=== PATIENT | male | born 1960 | race Two or more races ===

== ENCOUNTER 2017-06-18 12:58 | Emergency (ER) | payer SELFPAY ==
[2017-06-18 13:31] LABS: ABSOLUTE BASOPHILS # (AUTO) 0.1 10^3/uL (0.0-0.2); ABSOLUTE EOSINOPHILS # (AUTO) 0.1 10^3/uL (0.0-0.6); ABSOLUTE LYMPHOCYTES (AUTO) 2.2 10^3/uL (0.5-4.7); ABSOLUTE MONOCYTES (AUTO) 0.6 10^3/uL (0.1-1.4); ABSOLUTE NEUT (AUTO) 6.2 10^3/uL (1.7-8.2); EOSINOPHILS % (AUTO) 1.6 % (0-6); HEMATOCRIT 40.5 % (37.9-51.0); HEMOGLOBIN 13.3 g/dL (13.5-17.0); LYMPHOCYTES % (AUTO) 23.8 % (13-45); MEAN CORPUSCULAR HEMOGLOBIN 26.2 pg (27.0-33.4); MEAN CORPUSCULAR HGB CONC 32.9 g/dL (32.0-36.0); MEAN CORPUSCULAR VOLUME 80 fl (80-97); MONOCYTES % (AUTO) 6.3 % (3-13); PLATELET COUNT 228 10^3/uL (150-450); RED BLOOD COUNT 5.08 10^6/uL (4.35-5.55); RED CELL DISTRIBUTION WIDTH 14.8 % (11.5-14.0); SEGMENTED NEUTROPHILS % (AUTO) 67.3 % (42-78); TOTAL CELLS COUNTED % (AUTO) 100 %; WHITE BLOOD COUNT 9.2 10^3/uL (4.0-10.5)
--- NOTE | 2017-06-18 13:41 | ER Document Report ---
ED Cardiac - General Chief Complaint: Chest Pain Stated Complaint: CHEST PAIN Time Seen by Provider: 06/18/17 13:41 Notes: This is a 57-year-old male to the emergency department chief complaint of chest pain/arm pain and generally not feeling well. Patient was at work this morning when he just felt this tightness in his chest with some achiness in his left shoulder and left arm. Patient states that he has not felt well over the last couple of days. Went to his regular doctor. Had labs performed. I does not know the results of them. States that he is under a lot of stress at work. When he was at work today having a stressful situation he had pain in his chest and left arm. Ambulance was called. Patient received aspirin in route. Currently denies significant pain just has an achy feeling. Nonreproducible. No nausea. No vomiting. No abdominal pain. TRAVEL OUTSIDE OF THE [place] IN LAST 30 DAYS: No - HPI Patient complains to provider of: Chest pain, Chest tightness Was the onset of pain: Gradual Quality of pain: Intermittent, Mild, Heaviness Chest pain radiation location: Left arm, Left shoulder Severity now: Mild Severity at worst: Moderate Pain level currently: 1 Chest pain precipitating factors: Mental Exertion/Stress Cardiac risk factors: Diabetes, Hypertension, Smoker, Dyslipidemia, Hx MS Associated symptoms: None - Related Data Allergies/Adverse Reactions: phentermine [From Adipex-P] Allergy (Verified 06/18/17 15:43) shellfish derived Allergy (Verified 06/18/17 15:43) Past Medical History - General Information source: Patient - Social History Smoking Status: Current Every Day Smoker Cigarette use (# per day): Yes Frequency of alcohol use: None Drug Abuse: None Lives with: Spouse/Significant other Family History: CAD, DM, Hypertension Patient has suicidal ideation: No Patient has homicidal ideation: No - Past Medical History Cardiac Medical History: Reports: Hx Coronary Artery Disease, Hx Hypercholesterolemia, Hx Hypertension Pulmonary Medical History: Reports: None EENT Medical History: Reports: None Neurological Medical History: Reports: None Endocrine Medical History: Reports: Hx Diabetes Mellitus Type 2 Renal/ Medical History: Denies: Hx Peritoneal Dialysis Malignancy Medical History: Reports None GI Medical History: Reports: None Past Surgical History: Reports: Hx Cardiac Catheterization - with stents, Hx Orthopedic Surgery - R ankle Review of Systems - Review of Systems Constitutional: Malaise. denies: Fever, Weakness EENT: No symptoms reported. denies: Double vision, Difficulty swallowing, Mouth pain Cardiovascular: Chest pain. denies: Palpitations, Heart racing, Orthopnea Respiratory: No symptoms reported. denies: Cough, Hurts to breathe, Hemoptysis , Short of breath Gastrointestinal: denies: Abdominal pain, Diarrhea, Nausea, Vomiting Genitourinary: No symptoms reported Male Genitourinary: No symptoms reported Musculoskeletal: No symptoms reported. denies: Back pain, Gout, Joint pain, Muscle pain Skin: No symptoms reported. denies: Change in color, Dryness, Lesions, Lumps, Rash Hematologic/Lymphatic: No symptoms reported. denies: Anemia, Blood clots, Easy bleeding, Easy bruising Neurological/Psychological: No symptoms reported. denies: Confusion, Weakness, Numbness Physical Exam - Vital signs Vitals: Pulse Ox 96 06/18/17 13:00 Interpretation: Normal - General General appearance: Appears well, Alert - HEENT Head: Normocephalic, Atraumatic Eyes: Normal Pupils: PERRL - Respiratory Respiratory status: No respiratory distress Chest status: Nontender Breath sounds: Normal Chest palpation: Normal - Cardiovascular Rhythm: Regular Heart sounds: Normal auscultation Murmur: No - Abdominal Inspection: Normal Distension: No distension Bowel sounds: Normal Tenderness: Nontender Organomegaly: No organomegaly - Back Back: Normal, Nontender - Extremities General upper extremity: Normal inspection, Nontender, Normal color, Normal ROM , Normal temperature General lower extremity: Normal inspection, Nontender, Normal color, Normal ROM , Normal temperature, Normal weight bearing. No: Naeem's sign - Neurological Neuro grossly intact: Yes Cognition: Normal Orientation: AAOx4 Vinny Coma Scale Eye Opening: Spontaneous Vinny Coma Scale Verbal: Oriented Renick Coma Scale Motor: Obeys Commands Vinny Coma Scale Total: 15 Speech: Normal Motor strength normal: LUE, RUE, LLE, RLE Sensory: Normal - Psychological Associated symptoms: Normal affect, Normal mood - Skin Skin Temperature: Warm Skin Moisture: Dry Skin Color: Normal Course - Re-evaluation Re-evalutation: 06/18/17 15:50 At this time basic labs unremarkable. EKG does not show signs of acute ischemia. Chest x-ray unremarkable. Vital signs within normal limits. Patient with significant cardiac risk factors including coronary artery disease. Patient has 2 stents in his RCA. Stent placement approximately 5 years ago. Stress test likely greater than 12 months ago. Will consult patient 's fashion editor if possible do recommend disposition at this time. More likely patient will need to be admitted for a repeat stress test. 06/18/17 16:[address] Kendrick at [facility]. Knows patient well. States that he recommends doing second cardiac troponin. In the setting of his not feeling well over the last couple of days with negative cardiac enzymes 2 he will see in the office in the morning. We will see around 845. Obviously if cardiac labs are elevated on the second draw them patient will likely need to be transferred. Patient is comfortable with this plan. States he does not want to be admitted to the hospital. Will give a shot of Lovenox while in the ER. Will discharge with some nitroglycerin and strict instructions with regards to chest pain and return to the ED. 06/18/17 17:58 Second troponin negative. Asymptomatic at this time. Resting comfortably. Lovenox given. Follow-up in the morning the fashion editor. Feel comfortable at this time discharging - Vital Signs Vital signs: Temp Pulse Resp BP Pulse Ox 97.4 F 18 132/78 H 96 06/18/17 13:02 06/18/17 13:06 06/18/17 13:06 06/18/17 13:06 - Laboratory Result Diagrams: 06/18/17 13:01 06/18/17 13:01 Laboratory results interpreted by me: 06/18/17 06/18/17 13:01 13:01 Hgb 13.3 L MCH 26.2 L RDW 14.8 H Sodium 147.3 H Glucose 150 H ALT 20 L Creatine Kinase 52 L - EKG Interpretation by Mn EKG shows normal: Sinus rhythm, [place], Intervals, QRS Complexes, ST-T Waves Additional EKG results interpreted by me: 06/18/17 15:50 Inferior Q waves Discharge - Discharge Clinical Impression: Angina at rest Condition: Good Disposition: HOME, SELF-CARE Instructions: Angina Episode ([facility]), Aspirin (Cardiac) ([facility]), Chest Pain of Unclear Cause ([facility]), Nitrates ([facility]) Additional Instructions: Please take nitroglycerin if you develop chest pain. If chest pain is unresolved after taking 2 nitroglycerin spaced 5 minutes apart and then please call 911 and proceed to the nearest emergency department. Your fashion editor will try and work even tomorrow. Please show up at the office at 845. Prescriptions: Nitroglycerin 0.4 mg SL Q5M PRN 7 Days #1 bottle PRN Reason: Referrals: BHANU KENDRICK MD [ASSOCIATE] - 06/19/17 8:45 am BAUTISTA TOLLIVER MD [Primary Care Provider] - Follow up in 1 week
--- NOTE | 2017-06-18 13:44 | RADIOLOGY REPORT (SQ) ---
EXAM DESCRIPTION: CHEST SINGLE VIEW COMPLETED DATE/TIME: 06/18/2017 1:34 pm REASON FOR STUDY: cp COMPARISON: None. EXAM PARAMETERS: NUMBER OF VIEWS: One view. TECHNIQUE: Single frontal radiographic view of the chest acquired. RADIATION DOSE: NA LIMITATIONS: None. FINDINGS: LUNGS AND PLEURA: No opacities, masses or pneumothorax. No pleural effusion. MEDIASTINUM AND HILAR STRUCTURES: No masses. Contour normal. HEART AND VASCULAR STRUCTURES: Heart normal in size. Normal vasculature. BONES: No acute findings. HARDWARE: None in the chest. OTHER: No other significant finding. IMPRESSION: NO ACUTE RADIOGRAPHIC FINDING IN THE CHEST. TECHNICAL DOCUMENTATION: JOB ID: [id number] [employer]- All Rights Reserved Reading location - IP/workstation name: [email or web address]
[2017-06-18 14:12] LABS: ALANINE AMINOTRANSFERASE 20 U/L (21-72); ALBUMIN 3.8 g/dL (3.5-5.0); ALKALINE PHOSPHATASE 123 U/L (38-126); ANION GAP 12 (5-19); ASPARTATE AMINO TRANSFERASE 29 U/L (17-59); BILIRUBIN,DIRECT 0.4 mg/dL (0.0-0.4); BILIRUBIN,TOTAL 0.5 mg/dL (0.2-1.3); BLOOD UREA NITROGEN 14 mg/dL (7-20); CALCIUM 9.4 mg/dL (8.4-10.2); CARBON DIOXIDE 28 mmol/L (22-30); CHLORIDE 107 mmol/L (98-107); CREATINE KINASE 52 U/L (55-170); GLUCOSE 150 mg/dL (75-110); SODIUM 147.3 mmol/L (137-145); TOTAL PROTEIN 6.9 g/dL (6.3-8.2)
[2017-06-18 14:40] LABS: CREATINE KINASE MB 0.67 ng/mL (<4.55)
[2017-06-18 14:41] LABS: TROPONIN I < 0.012 ng/mL
[2017-06-18] MEDS ORDERED: ENOXAPARIN SODIUM INJ 120 MG/0.8 ML DISP.SYRIN SUBCUT ONE (16:23)
[2017-06-18 18:54] VITALS: BP 120/71
--- NOTE | 2017-06-18 19:26 | EKG REPORT ---
SEVERITY:- ABNORMAL ECG - SINUS RHYTHM LEFT ATRIAL ABNORMALITY INFERIOR INFARCT, AGE INDETERMINATE CONSIDER ANTERIOR INFARCT : Confirmed by: Dejon Chao MD 18-Jun-2017 19:25:16
== END 2017-06-18 19:07 | disposition home or self-care (01) ==
LOC: ER 12:58
DX: I20.9 Angina pectoris, unspecified (principal); R07.9 Chest pain, unspecified; R53.81 Other malaise; F17.210 Nicotine dependence, cigarettes, uncomplicated; E78.00 Pure hypercholesterolemia, unspecified; I10 Essential (primary) hypertension; Z91.013 Allergy to seafood
CPT/HCPCS: 93005; 99285; 96372; 36415; 82553; 82550; 85025; 80053; 84484; 83880; 71045; 93010; J1650